=== PATIENT | female | born 2000 | race Caucasian/White ===

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

== ENCOUNTER 2022-01-19 07:59 | Emergency (ER) | payer OTHER, BC ==
[2022-01-19] MEDS: Diphtheria,Pertussis(Acell),Tetanus Vaccine 0.5 ML Syringe IM ONE (09:13)
== END 2022-01-19 09:15 | disposition home or self-care (01) ==
LOC: VM.ED 07:59
DX: R51.9 Headache, unspecified (principal); Z88.0 Allergy status to penicillin; Z23 Encounter for immunization
CPT/HCPCS: 90471; 90715; 99283